=== PATIENT | male | born 1995 | race Caucasian/White ===

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

== ENCOUNTER 2017-06-11 13:03 | Emergency (ER) | payer MEDICAID ==
[~2017-06-11] VITALS: Ht 188 cm; Wt 75.1 kg
[2017-06-11 13:57] VITALS: BP 126/72
== END 2017-06-11 14:10 | disposition home or self-care (01) ==
LOC: ED 14:03
DX: R04.2 Hemoptysis (principal); K58.9 Irritable bowel syndrome, unspecified; F32.9 Major depressive disorder, single episode, unspecified; F43.10 Post-traumatic stress disorder, unspecified; R10.9 Unspecified abdominal pain; Z87.891 Personal history of nicotine dependence
CPT/HCPCS: 71046; 99284